=== PATIENT | female | born 1995 | race Caucasian/White ===

== ENCOUNTER 2016-09-13 10:18 | Emergency (ER) | payer BC, OTHER ==
[2016-09-13 11:59] VITALS: BP 127/68
--- NOTE | 2016-09-13 12:03 | UC ---
Respiratory Complaint HPI - HPI Summary HPI Summary: ONSET THREE DAYS AGO WITH SNEEZING, CONGESTION,COUGHING. SORE THROAT. COUGH FOR PAST TWO DAYS. CHILLS . LOW GRADE TEMP 99.9 AT HOME. BODY ACHES. HAS HAD STREP THREE TIMES THIS WINTER WITH TONSILLITIS. SCHEDULED TO HAVE A TONSILLECTOMY IN OCTOBER. She doesnt think that she is but asks for a urine preg test to be sure. LMP was 08/17. she does have some sinus pain and pressure. she had recurrent strep after having amox x 2 rounds and then zpack was effective with prednisone. doesnt think that she needs prednisone at this point. has white spots on her throat. - History of Current Complaint Chief Complaint: UCRespiratory Stated Complaint: SORE THROAT/CONGESTION Time Seen by Provider: 09/13/16 11:56 Hx Last Menstrual Period: 08/17/16 - Allergies/Home Medications Allergies/Adverse Reactions: Allergies Allergy/AdvReac Type Severity Reaction Status Date / Time No Known Allergies Allergy Verified 09/13/16 11:50 Home Medications: Home Medications Pseudoephedrine HCl [Sudafed 12 Hour] 120 mg PO BID 09/13/16 [History Confirmed 09/13/16] PMH/Surg Hx/FS Hx/Imm Hx Previously Healthy: Yes - Surgical History Surgical History: None - Family History Known Family History: Positive: Hypertension - Social History Alcohol Use: Occasionally Substance Use Type: None Smoking Status (MU): Never Smoked Tobacco Review of Systems Constitutional: Negative Skin: Negative Eyes: Negative ENT: Sore Throat, Nasal Discharge Respiratory: Cough Cardiovascular: Negative Gastrointestinal: Negative Genitourinary: Negative Motor: Negative Neurovascular: Negative Musculoskeletal: Negative Neurological: Negative Psychological: Negative All Other Systems Reviewed And Are Negative: Yes Physical Exam Triage Information Reviewed: Yes Appearance: Well-Appearing, Well-Nourished, Ill-Appearing - mild distress Vital Signs: Initial Vital Signs Temp 99.9 F 09/13/16 11:52 Pulse 112 09/13/16 11:52 Resp 20 09/13/16 11:52 BP 127/68 09/13/16 11:52 Pulse Ox 99 09/13/16 11:52 Vital Signs Reviewed: Yes Eye Exam: Normal ENT: Positive: Pharyngeal erythema, Nasal drainage, TMs normal, Tonsillar exudate, Other: - b/l frontal and maxillary sinus tenderness.. Negative: Muffled/hoarse voice Dental Exam: Normal Neck exam: Normal Neck: Positive: Supple, Nontender, No Lymphadenopathy Respiratory Exam: Normal Respiratory: Positive: Lungs clear, Normal breath sounds, No respiratory distress, No accessory muscle use. Negative: Crackles, Rhonchi, Stridor, Wheezing Cardiovascular Exam: Normal Cardiovascular: Positive: RRR, No Murmur, Pulses Normal, Brisk Capillary Refill Abdominal Exam: Normal Abdomen Description: Positive: Nontender, Soft Musculoskeletal Exam: Normal Neurological Exam: Normal Psychological Exam: Normal Skin Exam: Normal UC Diagnostic Evaluation - Laboratory O2 Sat by Pulse Oximetry: 99 Respiratory Course/Dx - Course Course Of Treatment: urine peg and rapid strep neg. she does well with zpack. she is very agreeable with this plan. - Differential Dx/Diagnosis Differential Diagnosis/HQI/PQRI: Bronchitis, Laryngitis, Sinusitis, Other - strep Provider Diagnoses: sinusitis, tonsilitis Discharge - Discharge Plan Condition: Stable Disposition: HOME Prescriptions: Azithromyxin FAITH (NF) [Z-Faith (Zithromax) 250 mg tabs #6] 250 mg PO .ZPAK INSTRUCTIONS #6 tab Patient Education Materials: Sinusitis (ED) Referrals: Non Staff,Doctor [Primary Care Provider] - Additional Instructions: make sure to take a probiotic while you are on an antibiotic. urine and rapid strep test were both neg. follow up at the [facility] in 3 days. tylenol/ibuprofen for pain
[2016-09-13] MEDS ORDERED: Ibuprofen TAB* 600 MG PO ONE (12:19)
== END 2016-09-13 12:53 | disposition home or self-care (01) ==
LOC: UCCORT 10:18
DX: J32.9 Chronic sinusitis, unspecified (principal); J03.90 Acute tonsillitis, unspecified
CPT/HCPCS: 81025; 87651; 99212; A9270-GY; G0463

== ENCOUNTER 2016-12-12 10:45 | Emergency (ER) | payer BC, OTHER | END 2016-12-12 11:13 | disposition left against medical advice (07) | LOC: UCCORT 10:45 | DX: R50.9 Fever, unspecified (principal); Z53.21 Procedure and treatment not carried out due to patient leaving prior to being seen by health care provider ==

== ENCOUNTER 2016-12-12 14:43 | Emergency (ER) | payer BC, OTHER ==
[2016-12-12 15:47] VITALS: BP 128/54
--- NOTE | 2016-12-12 15:54 | UC ---
Throat Pain/Nasal Chris HPI - HPI Summary HPI Summary: tonsils pain/swollen fever has plans to have them removed at home in February, last week had fevers, "always needs an antibiotic to feel better" - History of Current Complaint Chief Complaint: UCGeneralIllness Stated Complaint: FEVER,SORE THROAT Time Seen by Provider: 12/12/16 15:47 Hx Obtained From: Patient Hx Last Menstrual Period: 11/15/16 ?: No Onset/Duration: Gradual Onset, Lasting Days - 7, Still Present Pain Intensity: 7 Pain Scale Used: 0-10 Numeric Cough: None Associated Signs & Symptoms: Positive: Fever - Allergies/Home Medications Allergies/Adverse Reactions: Allergies Allergy/AdvReac Type Severity Reaction Status Date / Time No Known Allergies Allergy Verified 12/12/16 15:24 PMH/Surg Hx/FS Hx/Imm Hx Previously Healthy: No - tonsil issues - Surgical History Surgical History: None - Family History Known Family History: Positive: Hypertension - Social History Occupation: Student Lives: With Family Alcohol Use: Occasionally Substance Use Type: None Smoking Status (MU): Never Smoked Tobacco - Immunization History Most Recent Influenza Vaccination: [id number] Review of Systems Constitutional: Fever, Chills, Fatigue Skin: Negative Eyes: Negative ENT: Sore Throat Respiratory: Negative Cardiovascular: Negative Gastrointestinal: Negative Genitourinary: Negative Motor: Negative Neurovascular: Negative Musculoskeletal: Negative Neurological: Negative Psychological: Negative All Other Systems Reviewed And Are Negative: Yes Physical Exam Triage Information Reviewed: Yes Appearance: No Pain Distress, Well-Nourished, Ill-Appearing - mild Vital Signs: Initial Vital Signs Temp 99.8 F 12/12/16 15:19 Pulse 92 12/12/16 15:19 Resp 16 12/12/16 15:19 BP 128/54 12/12/16 15:19 Pulse Ox 100 12/12/16 15:19 Vital Signs Reviewed: Yes Eye Exam: Normal Eyes: Positive: Conjunctiva Clear ENT Exam: Normal ENT: Positive: Normal ENT inspection, Hearing grossly normal, Pharyngeal erythema, TMs normal, Tonsillar swelling, Tonsillar exudate. Negative: Nasal congestion, Nasal drainage, Trismus, Muffled/hoarse voice Dental Exam: Normal Neck exam: Normal Neck: Positive: Supple, Nontender, No Lymphadenopathy Respiratory Exam: Normal Respiratory: Positive: Chest non-tender, Lungs clear, Normal breath sounds, No respiratory distress, No accessory muscle use Cardiovascular Exam: Normal Cardiovascular: Positive: RRR, No Murmur, Pulses Normal, Brisk Capillary Refill Abdominal Exam: Normal Abdomen Description: Positive: Nontender, No Organomegaly, Soft Musculoskeletal Exam: Normal Musculoskeletal: Positive: Strength Intact, ROM Intact, No Edema Neurological Exam: Normal Neurological: Positive: Alert Psychological Exam: Normal Skin Exam: Normal Diagnostics - Laboratory Diagnostic Studies Completed/Ordered: Strep (-) Throat Pain/Nasal Course/Dx - Course Assessment/Plan: Zithromax, prednisone, increase fluids, tylenol, ibuprofen for pain follow with pcp as planned - Differential Dx/Diagnosis Differential Diagnosis/HQI/PQRI: Pharyngitis, Sinusitis, Tonsillitis, URI Provider Diagnoses: Tonsillilitis Discharge - Discharge Plan Condition: Stable Disposition: HOME Prescriptions: Azithromycin TAB* [Zithromax TAB (Z-FAITH) 250 mg #6 tabs] 2 tab PO SEE INSTRUCTIONS #1 faith predniSONE TAB* [Deltasone TAB*] 40 mg PO DAILY #6 tab Patient Education Materials: Tonsillitis (ED) Referrals: Non Staff,Doctor [Primary Care Provider] - Additional Instructions: Follow with [facility] and your MD at home as planned
== END 2016-12-12 16:09 | disposition home or self-care (01) ==
LOC: UCCORT 14:43
DX: J03.90 Acute tonsillitis, unspecified (principal)
CPT/HCPCS: 87651; 99212; G0463

== ENCOUNTER 2016-12-15 17:08 | Emergency (ER) | payer BC, OTHER ==
[2016-12-15 18:50] VITALS: BP 114/72
--- NOTE | 2016-12-15 18:59 | ED ---
Throat Pain/Nasal Congestion - HPI Summary HPI Summary: Pt here w/ persistent ST and tonsil swelling since last seen 12/12/2016. She had sx of ST, tonsil swelling and a few white spots early last week. This seemed to get a little better but a few days later got worse again. She was seen here and had a neg strep test - was started on a zpak along with prednisone 40mg daily. Unfortunately she has not been taking her steroids as directed. Took 10mg for a couple of days and just took a 20 mg dose today at 6p. She has a fever now - just took an ibuprofen prior to arrival. H/o mono and admits she's run down w/ college life (ie. studying, partying, poor sleep, stress, etc). Vomited Thursday but has not vomited since. Denies ab pain, N/V/D, rash. She has nasal congestion and ear pressure. Painful to swallow at times but she can swallow and can breath well - no wheezing, coughing, sneezing. Imms are UTD. Pt feels her voice sounds different. - History of Current Complaint Chief Complaint: UCRespiratory Time Seen by Provider: 12/15/16 18:47 Hx Obtained From: Patient - Allergies/Home Medications Allergies/Adverse Reactions: Allergies Allergy/AdvReac Type Severity Reaction Status Date / Time No Known Allergies Allergy Verified 12/15/16 18:50 Home Medications: Home Medications Azithromycin TAB* [Zithromax TAB (Z-FAITH) 250 mg #6 tabs] 1 tab PO SEE INSTRUCTIONS 12/15/16 [History Confirmed 12/15/16] Ibuprofen [Ibuprofen 200 MG] 400 mg PO PRN 12/15/16 [History] predniSONE TAB* [Deltasone TAB*] 20 mg PO DAILY 12/15/16 [History Confirmed 09/02] PMH/Surg Hx/FS Hx/Imm Hx Previously Healthy: No - tonsilitis of unknown etiology Infectious Disease History: No Infectious Disease History: Reports: History Other Infectious Disease - mononucleosis Denies: Traveled Outside the [place] in Last 30 Days - Family History Known Family History: Positive: Hypertension - Social History 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 Negative: Chills ENT: Other - see HPI Negative: Chest Pain Negative: Shortness Of Breath, Cough Negative: Abdominal Pain, Vomiting, Diarrhea, Nausea Positive: no symptoms reported Negative: Arthralgia, Myalgia Negative: Rash Negative: Headache Psychological: Normal All Other Systems Reviewed And Are Negative: Yes Physical Exam Triage Information Reviewed: Yes Vital Signs On Initial Exam: Initial Vitals Temp Pulse Resp BP Pulse Ox 100.4 F 98 16 114/72 97 12/15/16 18:40 12/15/16 18:40 12/15/16 18:40 12/15/16 18:40 12/15/16 18:40 Vital Signs Reviewed: Yes Appearance: Positive: Well-Appearing - anxious, No Pain Distress, Well-Nourished Skin: Positive: Warm, Dry Head/Face: Positive: Normal Head/Face Inspection - sinuses NTTP Eyes: Positive: Normal, EOMI, Conjunctiva Clear. Negative: Conjunctiva Inflammed, Discharge ENT: Positive: Hearing grossly normal, Nasal congestion - mucosal edema B/L - mucosa clear and moist, TMs normal, Tonsillar swelling - +3, Tonsillar exudate - B/L, Other - handling secretions well. Negative: Muffled/hoarse voice Neck: Positive: Supple, No Lymphadenopathy, Tenderness @ - mild submandibular TTP Respiratory/Lung Sounds: Positive: Clear to Auscultation, Breath Sounds Present. Negative: Stridor Cardiovascular: Positive: Normal, RRR Abdomen Description: Positive: Nontender, No Organomegaly, Soft. Negative: Splenomegaly Bowel Sounds: Positive: Present Musculoskeletal: Positive: Normal, Strength/ROM Intact Neurological: Positive: Normal, Sensory/Motor Intact, Alert, Oriented to Person Place, Time, CN Intact II-III Psychiatric: Positive: Anxious Diagnostics - Vital Signs Vital Signs Temp Pulse Resp BP Pulse Ox 12/15/16 18:40 100.4 F 98 16 114/72 97 - Laboratory Lab Statement: Any lab studies that have been ordered have been reviewed, and results considered in the medical decision making process. EENT Course/Dx - Differential Diagnoses Differential Diagnoses: Other - mono vs. other viral pharyngitis - Diagnoses Provider Diagnoses: Acute tonsillitis Discharge - Discharge Plan Condition: Stable Disposition: HOME Prescriptions: Magic Mouth Was-ZINA/MAAL/LIDO* 5 ml SWISH SPIT QID #1 bottle predniSONE TAB* [Deltasone TAB*] 40 mg PO DAILY #4 tab Forms: *Physical Education Release Referrals: Non Staff,Doctor [Primary Care Provider] - Additional Instructions: Gargle with salt water, drink plenty of hydrating fluids (ie. gatorade, chicken broth, neftaly adrienne, etc) Continue ibuprofen 600mg every 6 hours with food. May also take acetaminophen 650mg every 6 hours for pain/fever. Take 40mg of prednisone x 6 days - take 20mg when you get home to make a total of 40mg for the day. Tomorrow morning, take another 40mg of prednisone and complete course until you have taken 40mg daily x 6 days. It appears you have 8 tabs of 20mg tabs left. An additional 4 tabs were sent to pharmacy. This will total 40mg (2 tabs) daily x 6 days. DO not take for more than 6 days unless advised by medical provider. You were also given Magic Mouthwash in an effort to reduce pain and swelling to encourage drinking and eating (soft foods) - this is to prevent dehydration. Follow-up with [facility]. Call tomorrow to schedule an appointment Thursday: Franky Boss, Room B-26 Hours: Clinical service hours during the academic year are: * 8:15 a.m. - Noon Visits by Appointment * Noon - 1 p.m. Nurse service only * 1-4:30 p.m. Visits by Appointment * A mono test was performed today. Your test results may be reviewed at your appt with [facility] and/or you may call [facility] for results in 24- 48 hours. If you develop ab pain or swelling, avoid contact sports/activities until cleared by medical provider. *If you develop difficulty swallowing and/or difficulty breathing, go to the nearest ED or call 911
[2016-12-16 10:43] LABS: EBV Response NO
[2016-12-16 11:11] LABS: Mono Internal Control QC Line Present
[2016-12-16 11:12] LABS: Manual Entry Verification GRE0060
== END 2016-12-15 19:52 | disposition home or self-care (01) ==
LOC: UCCORT 17:08
DX: J03.90 Acute tonsillitis, unspecified (principal)
CPT/HCPCS: 36415; 86308; 99212; G0463

== ENCOUNTER 2017-12-03 12:45 | Emergency (ER) | payer BC, OTHER ==
--- OUTSIDE RECORDS SUMMARY | 2017-12-03 14:29 | XMS REPORT ---
:1995 External Reference #:[id number] [facility] Address [address] [place] [id number] Phone [phone] Care Team Providers Name Role Phone Yes Primary Care Physician Unavailable Payers Type Date Identification Numbers Payment Provider Subscriber Health Maintenance Policy Number: [id number] [facility] Winnie [employer] Organization (HMO) PayID: [id number] [address] [place] [address] Medigap Part B Policy Number: [id number] [facility] Rene [place] PayID: [id number] [address] [place] [address] Medicaid Effective: 11/18/2017 PayID: [id number] Medicaid Pe ([facility]) Anju [place] [address] [place] [address] Problems Description No Information Family History Date Family Member(s) Problem(s) Comments Father Alive Father No Current Problems Mother Alive Mother No Current Problems Social History Type Date Description Comments Education Currently attending 4th year of college Marital Status Legal Status: Never Cigars 11/18/2017 Never Smoked Cigars Pipe 11/18/2017 Never Smoked A Pipe Smokeless Tobacco 11/18/2017 Never Used Smokeless Tobacco ETOH Use Occasionally consumes alcohol Smoking 11/18/2017 Patient is a former smoker tried once 6 months ago Recreational Drug Use Formerly used Marijuana used once sporadically Recreational Drug Use Teaching Provided Regarding Naloxone/Narcan Training Available At [facility] Tattoo/Piercing Negative For Tattoo Tattoo/Piercing Piercings professionally done Condom Use Occasionally Allergies, Adverse Reactions, Alerts Date Description Reaction Status Severity Comments 11/18/2017 NKDA active Medications Medication Date Status Form Strength Qnty SIG Indications Ordering Provider Spironolactone Active Unknown Vital Signs Date Vital Result Comment 11/18/2017 BP Systolic 114 mmHg BP Diastolic 67 mmHg Height 65.5 inches 5'5.50" Weight 141.00 lb BMI (Body Mass Index) 23.1 kg/m2 Results Test Date Test Result H/L Range Note Laboratory test 11/18/2017 RPR W/RFX To Titer <pending> finding & Confirmation Laboratory test 11/18/2017 HIV Rapid... non reactive finding Procedures Description No Information Plan of Care 11/18/2017 - Florence Chen, NPZ11.3 Encntr screen for infections w sexl mode of transmissComments:Strongly encouraged to get HPV vaccine was given information from the CDC and HPV VISFollow up:Follow up if any further symptoms.Z30.41 Encounter for surveillance of contraceptive pillsComments: reports mostly consistent with OBC does not desire to change BCZ11.4 Encounter for screening for human immunodeficiency virusComments:Reviewed the following HIV post Test instructions:Have only one partner. If you have a regular partner make sure you know the HIV status of that partner. If you do not know the HIV status of your partner , make sure you always use condoms.Offered condoms and accepted educated on use
[2017-12-03 14:33] VITALS: BP 106/59
--- NOTE | 2017-12-03 14:45 | UC ---
Skin Complaint HPI - HPI Summary HPI Summary: 6 day history of progressive nodule on upper lip, indurated. She has tried to express it x2, applied tretinoin, and used H2O2 on it today. Drainage 2 days ago was purulent. Tender, not itching, no hx of herpes virus. No associated fever, headache, sore throat or oral lesions. Takes spironolactone for acne x the past month. - History of Current Complaint Chief Complaint: UCSkin Time Seen by Provider: 12/03/17 14:35 Stated Complaint: SKIN COMPLAINT (LIP) Hx Obtained From: Patient Hx Last Menstrual Period: 11/26/17 Onset/Duration: Gradual Onset, Lasting Days - 6 Timing: Constant Onset Severity: Mild Current Severity: Moderate Pain Intensity: 0 Location: Discrete, Other - left upper lip Aggravating Factor(s): Touch Alleviating Factor(s): Nothing Associated Signs & Symptoms: Positive: Negative - Allergy/Home Medications Allergies/Adverse Reactions: Allergies Allergy/AdvReac Type Severity Reaction Status Date / Time No Known Allergies Allergy Verified 12/03/17 14:29 Home Medications: Home Medications Oral Contraceptive 1 tab PO DAILY 12/03/17 [History Confirmed 12/03/17] Spironolactone TAB* [Aldactone TAB*] 50 mg PO BID 12/03/17 [History Confirmed ] Review of Systems Constitutional: Negative Skin: Other - nodule left upper lip Eyes: Negative ENT: Negative Respiratory: Negative Cardiovascular: Negative Gastrointestinal: Negative Genitourinary: Other - hx of abnormal cells on pap, partner has had HPV Motor: Negative Neurovascular: Negative Musculoskeletal: Negative Neurological: Negative Psychological: Negative Is Patient Immunocompromised?: No All Other Systems Reviewed And Are Negative: Yes PMH/Surg Hx/FS Hx/Imm Hx Previously Healthy: Yes - Surgical History Surgical History: Yes Surgery Procedure, Year, and Place: January 2017 Tonsilectomy - Family History Known Family History: Positive: Hypertension - Social History Occupation: Student Lives: Dormitory/Roommates Alcohol Use: Occasionally Substance Use Type: None Smoking Status (MU): Never Smoked Tobacco - Immunization History Most Recent Influenza Vaccination: NONE 2016 Physical Exam Triage Information Reviewed: Yes Appearance: Well-Appearing, No Pain Distress Vital Signs: Initial Vital Signs Temp 98.2 F 12/03/17 14:27 Pulse 71 12/03/17 14:27 Resp 16 12/03/17 14:27 BP 106/59 12/03/17 14:27 Pulse Ox 100 12/03/17 14:27 Eye Exam: Normal Eyes: Positive: Conjunctiva Clear ENT: Positive: Pharynx normal, TMs normal. Negative: Pharyngeal erythema Neck: Positive: Supple, Nontender, No Lymphadenopathy Respiratory: Positive: Lungs clear, Normal breath sounds Cardiovascular: Positive: RRR, No Murmur Neurological: Positive: Alert, Muscle Tone Normal Psychological Exam: Normal Skin Exam: Other - left upper lip line with 3 mm raised nodule with 2 mm surrounding erythema. Indurated, not fluctuant. White plaque over (secondary to hydrogen peroxide). Course/Dx - Course Course Of Treatment: hot compresses and bactroban - Differential Diagnoses - Skin Complaint Differential Diagnoses: Cellulitis, Other - herpes infection - Diagnoses Provider Diagnoses: pustule Discharge - Sign-Out/Discharge Documenting (check all that apply): Discharge - Discharge Plan Condition: Stable Disposition: HOME Prescriptions: Mupirocin 2% OINT* [Bactroban 2 % Oint*] 1 applic TOPICAL TID #1 tube Patient Education Materials: Abscess (ED) Referrals: Non Staff,Doctor [Primary Care Provider] - Additional Instructions: This pustule should be treated as a small abscess. There is nothing to drain at this time. Apply hot moist compresses for 5 minutes 3 or 4 times per day for 5 minutes. Do NOT attempt to express more drainage from this. Apply a light layer of bactroban. As discussed, the crust will slough off in several days, although the area will feel firm for a week or 2. - Billing Disposition and Condition Condition: STABLE Disposition: HOME
== END 2017-12-03 15:00 | disposition home or self-care (01) ==
LOC: UCCORT 12:45
DX: K13.0 Diseases of lips (principal); B00.1 Herpesviral vesicular dermatitis
CPT/HCPCS: 99212; G0463

== ENCOUNTER 2017-12-22 13:36 | Emergency (ER) | payer BC, OTHER ==
--- OUTSIDE RECORDS SUMMARY | 2017-12-22 14:16 | XMS REPORT ---
:1995 External Reference #:[id number] [facility] Address [address] [place] [id number] Phone [phone] Care Team Providers Name Role Phone Yes Primary Care Physician Unavailable Payers Type Date Identification Numbers Payment Provider Subscriber Health Maintenance Policy Number: [id number] [facility] [employer] Organization (HMO) PayID: [id number] [address] [place] [address] Medigap Part B Policy Number: [id number] [facility] Rene [place] PayID: [id number] [address] [place] [address] Medicaid Effective: 11/18/2017 Policy Number: Medicaid Pe ([facility]) Anju [place] [id number] Expires: 01/14/2018 PayID: [id number] [address] [place] [address] Problems Description No Information Family History Date [...] Teaching Provided Regarding Naloxone/Narcan Training Available At [facility] Tattoo/Piercing Negative For Tattoo Tattoo/Piercing Piercings professionally done Condom Use Occasionally Allergies, Adverse Reactions, Alerts Date Description Reaction Status Severity Comments 11/18/2017 NKDA active Medications Medication Date Status Form Strength Qnty SIG Indications Ordering Provider Fluconazole 12/16/ Active Tablets 150mg 2tabs one tab today B37.3 In Whan 2018 and december MD Emiliano repeat in 10 days if still symptomatic Spironolactone / Active Unknown 0000 Vital Signs Date Vital Result Comment 12/16/2017 BP Systolic 118 mmHg BP Diastolic 70 mmHg Weight 144.00 lb 11/18/2017 BP Systolic 114 mmHg BP Diastolic 67 mmHg Height 65.5 inches 5'5.50" Weight 141.00 lb BMI (Body Mass Index) 23.1 kg/m2 Results Test Date Test Result H/L Range Note Urinalysis DIP Only.... 12/16/2017 Urine Leukocyte Esterase QN neg Urine Nitrite QN neg Urine Blood neg Urine PH 5.0 Urine Protein Random neg Urine Ketone Random neg Urine Glucose QN Random neg Wet Prep.... 12/16/2017 WBC Smear neg Clue Cells Vag Fluid Wet Prep 2 Xochilt Wet Prep many Lactobacillus Wet Prep neg Whiff Wet Prep neg Bacteria Wet Prep na PH Wet Prep 4.5 Misc Other Test no tric Laboratory test finding 11/18/2017 RPR W/Titer and Conf NON-REACTIVE Non- Reactive 1 RFX Chlam Trach/Neisseria 11/18/2017 C.Trachomatis NOT DETECTED Not Detected 2 Gonorroeae Rna Tma Rna,Tma N.Gonorrhoeae Rna,Tma NOT DETECTED Not Detected 3 Laboratory test finding 11/18/2017 HIV Rapid... non reactive 1 The RPR is a rpo-nnovdjyjlw-kudmlgdl test; therefore a treponemal-specific confirmatory test should be performed unless prior syphilis infection has been documented for the patient. 2 This test was performed using the APTIMA COMBO2(R) Assay (GEN-PROBE(R). The analytical performance characteristics of this assay, when used to test SurePath(R) specimens have been determined by [facility]. 3 This test was performed using the APTIMA COMBO2(R) Assay (GEN-PROBE(R). The analytical performance characteristics of this assay, when used to test SurePath(R) specimens have been determined by [facility]. Procedures Description No Information Plan of Care 12/16/2017 - Florence Chen, NPZ11.3 Encntr screen for infections w sexl mode of transmissFollow up:Follow up if any further symptoms.Z30.41 Encounter for surveillance of contraceptive pillsComments:Happy with method and reports consistent useB37.3 Candidiasis of vulva and vaginaNew Medication:Fluconazole 150 mgComments:Abstain for one week then exclusive condom use for a week after, educated that continued condom use will decrease risk of STI
[2017-12-22 14:25] VITALS: BP 108/70
--- NOTE | 2017-12-22 14:30 | UC ---
Complaint Female HPI - HPI Summary HPI Summary: 22 yo female presents with urinary frequency, urgency, and burning for the last 2 days. She tells me that she was treated for a yeast infection 1 week ago - these symptoms have resolved. Denies fever, chills, hematuria, flank pain. - History Of Current Complaint Chief Complaint: UCGU Stated Complaint: URINARY COMPLAINT Time Seen by Provider: 12/22/17 14:29 Hx Obtained From: Patient Hx Last Menstrual Period: 12/17/17 Onset/Duration: Sudden Onset Severity Initially: Moderate Severity Currently: Moderate Pain Intensity: 7 Pain Scale Used: 0-10 Numeric - Allergies/Home Medications Allergies/Adverse Reactions: Allergies Allergy/AdvReac Type Severity Reaction Status Date / Time No Known Allergies Allergy Verified 12/22/17 14:17 Home Medications: Home Medications Noreth-Ethinyl Estradiol/Iron [Kaitlib Fe 0.8-25 mg-Mcg] 1 chw PO DAILY [History Confirmed 12/22/17] PMH/Surg Hx/FS Hx/Imm Hx - Additional Past Medical History Additional PMH: Acne Previously Healthy: Yes - Surgical History Surgical History: Yes Surgery Procedure, Year, and Place: January 2017 Tonsilectomy - Family History Known Family History: Positive: Hypertension - Social History Occupation: Student Lives: Alone Alcohol Use: Occasionally Substance Use Type: None Smoking Status (MU): Never Smoked Tobacco - Immunization History Most Recent Influenza Vaccination: NONE 2016 Review of Systems Constitutional: Negative Skin: Negative Respiratory: Negative Cardiovascular: Negative Gastrointestinal: Negative Genitourinary: Dysuria, Frequency, Urgency Neurovascular: Negative Neurological: Negative Psychological: Negative All Other Systems Reviewed And Are Negative: Yes Physical Exam - Summary Physical Exam Summary: GENERAL: NAD. WDWN. No pain distress. SKIN: No rashes, sores, lesions, or open wounds. NECK: Supple. Nontender. No lymphadenopathy. CHEST: CTAB. No r/r/w. No accessory muscle use. Breathing comfortably and in no distress. CV: RRR. Without m/r/g. Pulses intact. Brisk cap refill. ABDOMEN: Soft. NTTP. No distention or guarding. No CVA tenderness. Bowel sounds present NEURO: Alert. CN II-XII grossly intact. PSYCH: Age appropriate behavior. Triage Information Reviewed: Yes Vital Signs: Initial Vital Signs Temp 98.5 F 12/22/17 14:20 Pulse 75 12/22/17 14:20 Resp 17 12/22/17 14:20 BP 108/70 12/22/17 14:20 Pulse Ox 100 12/22/17 14:20 Complaint Female Dx - Course Course Of Treatment: UA: 3+ blood and 2+ leuks. She is on her menstural period currently. - Differential Dx/Diagnosis Provider Diagnoses: UTI Discharge - Sign-Out/Discharge Documenting (check all that apply): Discharge/Admit/Transfer - Discharge Plan Condition: Stable Disposition: HOME Prescriptions: Cephalexin CAP* [Keflex CAP*] 500 mg PO BID #6 cap Patient Education Materials: Urinary Tract Infection in Women (DC) Referrals: Non Staff,Doctor [Primary Care Provider] - Additional Instructions: If you develop a fever, shortness of breath, chest pain, new or worsening symptoms - please call your PCP or go to the ED. - Billing Disposition and Condition Condition: STABLE Disposition: HOME
== END 2017-12-22 15:04 | disposition home or self-care (01) ==
LOC: UCCORT 13:36
DX: N39.0 Urinary tract infection, site not specified (principal)
CPT/HCPCS: 81003; 87077; 87086; 87186; 99212; G0463

== ENCOUNTER 2017-12-27 17:54 | Emergency (ER) | payer BC, OTHER ==
[2017-12-27 18:56] VITALS: BP 118/74
--- NOTE | 2017-12-27 19:18 | UC ---
UC General HPI - HPI Summary HPI Summary: pt completed a 3 day tx for a uti last week. she got completely better until today when the urinary discomfort returned. denies fever, abdominal pain and vaginal d/c. states just very recent std testing which was neg thus no risk/ concern for std. - History of Current Complaint Chief Complaint: UCGU Stated Complaint: POSSIBLE UTI Time Seen by Provider: 12/27/17 19:11 Hx Obtained From: Patient Hx Last Menstrual Period: 12/19/17 Onset/Duration: Gradual Onset Timing: Constant Pain Intensity: 6 Aggravating: nothing Alleviating: nothing Associated Signs & Symptoms: Positive: Dysuria. Negative: Abdominal Pain, Back Pain, Fever - Allergy/Home Medications Allergies/Adverse Reactions: Allergies Allergy/AdvReac Type Severity Reaction Status Date / Time No Known Allergies Allergy Verified 12/22/17 14:17 PMH/Surg Hx/FS Hx/Imm Hx - Additional Past Medical History Additional PMH: uti - Surgical History Surgical History: Yes Surgery Procedure, Year, and Place: January 2017 Tonsilectomy - Family History Known Family History: Positive: Hypertension - Social History Occupation: Student - just graduated Lives: With Family Alcohol Use: Occasionally Substance Use Type: None Smoking Status (MU): Never Smoked Tobacco - Immunization History Most Recent Influenza Vaccination: NONE 2016 Vaccination Up to Date: Yes Review of Systems Constitutional: Negative Skin: Negative Eyes: Negative ENT: Negative Respiratory: Negative Cardiovascular: Negative Gastrointestinal: Negative Genitourinary: Frequency, Urgency Motor: Negative Neurovascular: Negative Musculoskeletal: Negative Neurological: Negative Psychological: Negative Is Patient Immunocompromised?: No All Other Systems Reviewed And Are Negative: Yes Physical Exam Triage Information Reviewed: Yes Appearance: Well-Appearing Vital Signs: Initial Vital Signs Temp 99.2 F 12/27/17 18:48 Pulse 78 12/27/17 18:48 Resp 18 12/27/17 18:48 BP 118/74 12/27/17 18:48 Pulse Ox 98 12/27/17 18:48 Vital Signs Reviewed: Yes Eyes: Positive: Conjunctiva Clear ENT: Positive: Normal ENT inspection Neck: Positive: Supple, Nontender, No Lymphadenopathy Respiratory: Positive: Lungs clear, Normal breath sounds Cardiovascular: Positive: RRR, No Murmur Abdomen Description: Positive: Nontender, No Organomegaly, Soft. Negative: CVA Tenderness (R), CVA Tenderness (L) Bowel Sounds: Positive: Present Musculoskeletal: Positive: ROM Intact Neurological: Positive: Alert Psychological: Positive: Age Appropriate Behavior Skin Exam: Normal Course/Dx - Course Course Of Treatment: prior visit cultured + for e coli. pt tx keflex 500mg bid x 3 days. took pyridum so second culture sent and will tx macrobid which the e coli was sensitive to. - Differential Dx - Multi-Symptom Provider Diagnoses: UTI Discharge - Sign-Out/Discharge Documenting (check all that apply): Discharge/Admit/Transfer - Discharge Plan Condition: Stable Disposition: HOME Prescriptions: Nitrofurantoin Monohyd/M-Cryst [Macrobid 100 mg Capsule] 100 mg PO BID #10 cap Patient Education Materials: Dysuria (ED) Referrals: Non Staff,Doctor [Primary Care Provider] - Additional Instructions: FOLLOW UP DR CASSIDY FRAGOSO YOUR PCP IN [place], [place] IN 5-7 DAYS FOR A RECHECK. - Billing Disposition and Condition Condition: STABLE Disposition: HOME
[2017-12-27] MEDS ORDERED: Nitrofurantoin Macrocrystals* 50 MG CAP PO ONE (19:22)
== END 2017-12-27 19:30 | disposition home or self-care (01) ==
LOC: UCCORT 17:54
DX: N39.0 Urinary tract infection, site not specified (principal)
CPT/HCPCS: 99212; A9270-GY; G0463